=== PATIENT | female | born 1990 | race Two or more races ===

== ENCOUNTER 2024-08-29 00:03 | Inpatient (IN) | payer MEDICAID, SELFPAY ==
[2024-08-29] VITALS (200 sets, daily range): BP systolic 87–163; BP diastolic 53–99; PULSE 72–132; RESP 16–98; TEMP 36.4–37.8; O2SAT 75–100; BMI 33.0
--- NOTE | 2024-08-29 00:54 | XR_ITS ---
Examination: age Limited Technique: Limited transabdominal sonographic images pelvis Exam date and time: May 29, 2025 0242 hrs. Indications: Pelvic contractions beginning 2330 hrs. Last night active labor evaluation, unknown presentation of the right Findings: Viable intrauterine gestation cephalic presentation spine maternal left Estimated weight 3207 g Cardiac motion 155 BPM Estimated gestational age 37 weeks 4 days Impression: Viable intrauterine gestation cephalic presentation
[2024-08-29] MEDS: RINGERS LACTATED 1000 ML 1,000 ML 125 ML IV ×3 (01:10→06:50)
[2024-08-29] MEDS: ACETAMINOPHEN IVPB 1,000 MG/100 ML VIAL 250 MG IV ×2 (01:20→08:07)
[2024-08-29] MEDS: Ampicillin Inj 2,000 MG in SODIUM CHLORIDE 0.9% (P) 100 ML 100 MG IV ×3 (01:38→14:40)
[2024-08-29 02:12] LABS: Basophils % (Auto) 0 % (0-2.5); Eosinophils % (Auto) 0 % (0-10); Hematocrit 36.8 % (36.0-46.0); Hemoglobin 12.3 g/dL (12.0-16.0); Immature Granulocytes % (Auto) 1 % (0-0); Immature Granulocytes Auto 0.07 Thou/mm3 (0.00-0.00); Lymphocytes # (Auto) 0.6 Thou/mm3 (1.0-4.8); Lymphocytes % (Auto) 7 % (10-50); Mean Corpuscular HGB Conc 33.4 g/dl (31.0-37.0); Mean Corpuscular Hemoglobin 27.6 pg (25.0-35.0); Mean Corpuscular Volume 83 fL (80-100); Monocytes # (Auto) 0.8 Thou/mm3 (0.0-0.8); Monocytes % (Auto) 9 % (0-12); Neutrophils # (Auto) 7.5 Thou/mm3 (1.8-7.7); Neutrophils % (Auto) 83 % (37-80); Nucleated Red Blood Cell % 0 /100 WBC (0); Platelet Count 165 Thou/mm3 (140-440); RDW Standard Deviation 41.6 fL (36.4-46.3); Red Blood Count 4.45 Miln/mm3 (4.00-5.20)
[2024-08-29 02:35] LABS: COVID-19 Antigen (In-House) Negative (Negative)
[2024-08-29] MEDS: GENTAMICIN IV (03:22)
[2024-08-29] MEDS: SODIUM CHLORIDE IV (03:22)
[2024-08-29 04:06] LABS: Syphilis Nonreactive (Nonreactive)
--- NOTE | 2024-08-29 04:15 | PRELIM_ITS ---
Obstetric ultrasound with Doppler. August 29, 2024 0242 hours Clinical history: Determine presentation and EFW Comparison: None. Findings: There is a gravid uterus with a live fetus in cephalic with spine to the maternal left presentation of mean gestational age 39 weeks and 6 days (by biometric). Estimated weight is 3207 grams. Impression: Gravid uterus with a single live fetus in cephalic with the spine to the maternal left presentation of mean gestational age 39 weeks 6 days. Estimated weight is 3207 grams. Report Electronically Signed By: Ermias Joseph 08/29/2024 4:15:08 AM [EST]
[2024-08-29 04:45] LABS: Influenza A Ag Negative; Influenza B Ag Positive
[2024-08-29] MEDS: CLINDAMYCIN 900MG IVPB 900 MG in PRE-MIXED 1 BAG 50 MG IV ×2 (04:57→12:55)
[2024-08-29] MEDS: CITRIC ACID/SODIUM CITR 15 ML UDC (BICITRA) 30 ML (05:14)
[2024-08-29] MEDS: METOCLOPRAMIDE INJ 5 MG/ML VIAL 2 ML 10 MG (05:14)
--- NOTE | 2024-08-29 05:22 | PD.LDHP ---
Documentation for date of: 08/29/24 OB Labor/Induct. HPI History of Present Illness History of present illness: 34-year-old 2 para 1-0-0-1 at 38 weeks 0 days admitted with grossly ruptured membranes for augmentation of labor. On arrival at 12:40 AM baby was tachycardic in 160-170 baseline. Mom had an elevated temperature on arrival. Antibiotics were started patient was given a bolus. This is my first encounter with the patient patient had all her care with PRUDENCIO Martin. Orders were given for routine admission. At 4:10 AM I was called by the nurse that the baby although has recovered from tachycardia and the baseline is 150. However most of the heart tracing has been minimal variability. Resuscitation has been tried as in position changes and bolus of fluid. Pitocin was not started because of minimal variability. RN was instructed to insert internal monitoring so that the call was of minimal variability can be ascertained for example if the patient is tachysystolic then there will be a reason for her minimal variability History of Present Adequate Care: Yes Labs Labs: Negative: Hepatitis B, HIV, Chlamydia and Gonorrhea and Unknown: Group Beta Strep Meds Home Medications and Allergies Allergies Allergy/AdvReac Type Severity Reaction Status Date / Time No Known Allergies Allergy Verified 03/28/24 17:05 OB Exam Physical Exam Vital signs: Temp Pulse Resp BP Pulse Ox 98.5 F 111 H 20 139/89 H 92 L 08/29/24 03:37 08/29/24 05:08 08/29/24 01:37 08/29/24 05:08 08/29/24 05:20 Constitutional Constitutional: no acute distress Routine HEENT Exam Head: Present normocephalic and atraumatic Eye: Present EOMI and PERRL ENT: Present mucous membranes moist Routine Neck Exam Neck: Present supple and trachea midline Routine Cardiovascular Exam Cardiovascular: Present RRR Routine Abdominal Exam Abdominal: Present soft and normoactive bowel sounds Detailed Labor and Delivery Exam Dilation (cm): 3.5 on admission has changed to 4 cm now Comments: On review of the tracing, minimal variability was noted most of the strip however accelerations are present. Occasional late decelerations seen. And spite of all the resuscitation and with presence of internal monitors minimal variability was confirmed Routine Extremities Exam Extremities: Present full ROM Routine Skin Exam Skin: Present intact, dry and warm Routine Neurological Exam Neurological: Present alert, oriented X3 and CN II-XII intact Routine Psychiatric Exam Psychiatric: Present normal affect and normal thought process OB Results Labs 08/29/24 01:10 Labs: Short CBC 08/29/24 Range/Units 01:10 WBC 9.0 (3.6-11.0) Thou/mm3 Hgb 12.3 (12.0-16.0) g/dL Hct 36.8 (36.0-46.0) % Plt Count 165 (140-440) Thou/mm3 Impressions Impression: 34-year-old 2 para 1-0-0-1 at 38 weeks and 0 days was admitted after SROM Started on antibiotics for maternal fever Minimal variability, category 2 heart tone noted and spite of resuscitation GBS negative OB Assessment & Plan Additional Plan Additional Plan Comment: Primary low-transverse offered to the mom Expectant management including continuing labor, chances of chorioamnionitis was discussed with the patient. Patient desires a primary low-transverse Azithromycin 1 g to be given DVT prophylaxis Cefazolin as per routine preop prophylaxis
[2024-08-29] MEDS: CITRIC ACID/SODIUM CITR 15 ML UDC (BICITRA) 30 ML PO ×2 (05:30→17:19)
[2024-08-29] MEDS: ceFAZolin/D5W 2 GM IV 2 GM/100 ML BAG IV ×2 (05:30→17:19)
--- NOTE | 2024-08-29 05:38 | PD.LDPN ---
Documentation for date of: 08/29/24 OB Labor Progress Note Pelvic Exam Dilation (cm): 5CM Status status: Category l Comments: Acceleration on scalp stimulation , variability is moderate Assessment and Plan Comments: Patient is feeling a lot of pressure and was rechecked to be changed to 5 cm and 100 percent effaced Variability has returned to moderate We will hold off on the for now
[2024-08-29 07:33] LABS: Alanine Aminotransferase 16 U/L (10-49); Albumin, Serum 3.8 gm/dL (3.5-5.0); Albumin/Globulin Ratio 1.4 (1.2-2.2); Alkaline Phosphatase 162 U/L (46-116); Anion Gap 12 (7-16); Aspartate Amino Transferase 25 U/L (0-34); BUN/Creatinine Ratio 10 Ratio (12-20); Bilirubin,Total 0.5 mg/dL (0.3-1.2); Blood Urea Nitrogen 7 mg/dL (9-23); Calcium 8.8 mg/dL (8.3-10.6); Carbon Dioxide 19.9 mMol/L (20.0-31.0); Chloride 106 mMol/L (98-107); Creatinine (Component) 0.7 mg/dL (0.6-1.3); Estimated Creatinine Clearance 111.1 mL/min (>60); Globulin 2.7 gm/dL (2.3-3.5); Glucose 96 mg/dL (74-106); LDH (Lactate Dehydrogenase) 228 U/L (120-246); Osmolality,Calculated 273 (275-295); Potassium 3.6 mMol/L (3.4-5.1); Sodium 138 mMol/L (136-145); Total Protein 6.5 gm/dL (5.7-8.2); eGFR > 60 See Note
--- NOTE | 2024-08-29 09:59 | PD.LDPN ---
Documentation for date of: 08/29/24 OB Labor Progress Note Pain Control Pain control: epidural Comments: Still having pain and pressure with epidural in place Pelvic Exam Dilation (cm): 8 Effacement (%): 80 station: -2 Amniotic membrane status: Ruptured Contractions Monitor mode: Internal Contraction frequency: 2-3 min Contraction duration: 30 Intrauterine tone measurement: 200 Status status: Category l Assessment and Plan Assessment: active labor Plan OB labor note: continuous present management Comments: Pt with active influenza. Tylenol for fevers as needed
[2024-08-29] MEDS: RINGERS LACTATED 500 ML 500 ML 999 ML IV (12:23)
[2024-08-29 14:29] LABS: Vancomycin,Random < 3.0 mcg/mL
[2024-08-29] MEDS: FAMOTIDINE INJ 10 MG/ML VIAL 2 ML 20 MG IV (17:19)
--- NOTE | 2024-08-29 17:20 | PD.LDPN ---
Documentation for date of: 08/29/24 OB Labor Progress Note Pain Control Pain control: epidural Comments: Pt has a lot of pelvic pressure Pelvic Exam Dilation (cm): 9.5 Effacement (%): 90 station: -1 Amniotic membrane status: Ruptured Contractions Monitor mode: Internal Contraction frequency: 2-3 min Intrauterine tone measurement: 200 Status status: Category l Assessment and Plan Plan OB labor note: Comments: Patient has made no significant cervical change in greater than 5 hours plan for primary section at this time. Patient was consented all questions answered all consent signed.
--- NOTE | 2024-08-29 18:37 | PD.LDDELS ---
Data (Lay) Data Hx Section: No (Arrest of dilation at 9 cm) Reason for Primary Section: Arrest of Dilation : 2 Term: 1 : 0 Livin : 0 Delivery Data (Lay) Labor Data Stimulated/Augmented: Yes Induction: Yes Method: AROM Rupture Type: SROM Amniotic Fluid: Clear
[2024-08-29] MEDS: KETOROLAC INJ 30 MG/ML VIAL IVP (19:37)
--- NOTE | 2024-08-29 20:08 | PD.GYNPROC ---
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 Patient had influenza and a category 2 tracing and was admitted overnight and induced she was she progressed to 8 to 9 cm and did not make any further progress for greater than 6 hours and a primary was called Pre-Op diagnosis: Arrest of dilation Post-Op diagnosis: Name Anesthesia type: Spinal Procedure description: After obtaining informed consent, the patient was brought back to the operating room and her epidural was bolused to provide excellent anesthesia. She was then prepped and draped in the dorsal supine position with a leftward tilt in a normal sterile fashion. A Rivera catheter had been inserted during the patient's labor. A Pfannenstiel skin incision was made this a scalpel and carried down to the underlying fascia the fascia was incised the midline the fascial incision extended laterally using Gaytan scissors. The superior aspect the fascia was grasped Jignesh clamps underlying rectus muscles dissected off using blunt and sharp dissection.This was repeated in the infra aspect the incision. The rectus muscles were the midline the peritoneum was picked up entered sharply Metzenbaum scissors was extended superiorly and inferiorly with good visualization of the bladder. The bladder blade was inserted and the uterus was incised in low transverse fashion above the bladder reflection using a scalpel. The uterine incision was extended laterally with blunt dissection with surgeons fingers. The bag water was ruptured and copious clear fluid was noted. The bladder blade was removed the infant was delivered atraumatically. The cord was clamped and cut and the was handed off to the waiting pediatric staff. Cord blood was collected.Cord gases were saved. The placenta was then manually removed and the uterus was exteriorized and cleared of all clots and debris. The uterine incision was repaired with 0 Vicryl in a running locked fashion and excellent hemostasis was noted. The uterus was returned to the patient's abdominal cavity and copious irrigation was carried out with warm normal saline. The uterine incision was reexamined several times noted to be hemostatic. After ensuring the rectus muscles were hemostatic these were reapproximated at the midline using running suture of 0 Vicryl. The fascia was closed with 0 Vicryl in a running fashion. The subcutaneous tissues were irrigated found to be hemostatic. These were reapproximated using a running suture of 3-0 plain. The skin was closed with a subcuticular suture of 4-0 Monocryl. The patient tolerated the procedure well. Sponge, lap and needle counts were correct x 2 . The patient went to the recovery room awake and in stable condition. Of note, note the baby was in recovery with mom and dad in stable condition Specimen: none Implants: none Estimated blood loss (ml): 500 Findings: Liveborn male in the direct OP presentation with no nuchal cord or meconium .Apgars were 8 and 9. Weight was 8 pounds 4 ounces. The placenta was complete spontaneous and grossly normal. The uterus, bilateral fallopian tubes, and ovaries were grossly normal to inspection. Complications: none Surgical staff Operation Date: 08/29/24 17:15 Case Staff SHIP RUNNER: Isreal Holbrook RNwind development director: Niki Green Diagnosis Problem List Completed Was Problem List Reviewed/Reconciled?: Yes
--- NOTE | 2024-08-29 21:00 | PC.NURSE ---
@2100, Dr. Rasmussen consulted on continuing antibiotic therapy. Per Dr. Rasmussen, discontinue ampicillin and clindamycin
[2024-08-29] MEDS: OXYTOCIN in NS 20 units 20 UNIT/1,000 ML BAG 125 UNIT IV (21:11)
[2024-08-30 00:45] VITALS: BP 119/79; PULSE 92; RESP 18; TEMP 36.6; O2SAT 98
[2024-08-30 03:45] VITALS: BP 117/81; PULSE 86; RESP 20; TEMP 36.6; O2SAT 99
[2024-08-30] MEDS: RINGERS LACTATED 1000 ML 1,000 ML 125 ML IV (05:22)
[2024-08-30 05:42] LABS: Basophils % (Auto) 0 % (0-2.5); Eosinophils % (Auto) 0 % (0-10); Hematocrit 31.5 % (36.0-46.0); Hemoglobin 10.4 g/dL (12.0-16.0); Immature Granulocytes % (Auto) 1 % (0-0); Immature Granulocytes Auto 0.07 Thou/mm3 (0.00-0.00); Lymphocytes % (Auto) 8 % (10-50); Mean Corpuscular Hemoglobin 27.9 pg (25.0-35.0); Mean Corpuscular Volume 85 fL (80-100); Monocytes # (Auto) 0.5 Thou/mm3 (0.0-0.8); Monocytes % (Auto) 4 % (0-12); Neutrophils # (Auto) 10.4 Thou/mm3 (1.8-7.7); Neutrophils % (Auto) 87 % (37-80); Nucleated Red Blood Cell % 0 /100 WBC (0); Platelet Count 152 Thou/mm3 (140-440); RDW Standard Deviation 43.6 fL (36.4-46.3); Red Blood Count 3.73 Miln/mm3 (4.00-5.20); White Blood Count 11.9 Thou/mm3 (3.6-11.0)
[2024-08-30 08:10] VITALS: BP 114/76; PULSE 92; RESP 17; TEMP 36.8; O2SAT 98
[2024-08-30] MEDS: DOCUSATE SOD 100 MG CAPSULE PO (08:40)
[2024-08-30] MEDS: KETOROLAC INJ 30 MG/ML VIAL IVP (10:51)
--- NOTE | 2024-08-30 11:14 | ESPR_ITS ---
Subjective Subjective Interval history: The Patient is a 34-year-old -0-0-2 postop day #1 status post primary C- section the evening of 08/29/2024. The Patient is Sinhala-speaking only and a nurse translates the visit for me. She still has a cough and she has had influenza for 3 days. Her pain is controlled, she is tolerating a general diet and breast-feeding. She denies heavy vaginal bleeding. Exam Vital Signs Temp Pulse Resp BP Pulse Ox O2 Del Method 98.2 F 92 17 114/76 98 Room Air 08/30/24 08:10 08/30/24 08:10 08/30/24 08:10 08/30/24 08:10 08/30/24 08:10 08/30/24 08:10 Constitutional Constitutional: no acute distress and cooperative Comments: Is sitting up in bed. Alert and oriented x 3 in no apparent distress Rivera catheter is in place draining clear urine. Routine Abdominal Exam Abdominal: Present soft and wound Comments: Incision dressed and dry. Fundus firm and nontender. Routine Extremities Exam Comments: No cyanosis clubbing or edema. Objective Labs 08/30/24 04:45 08/29/24 02:55 Labs: Laboratory Results - last 24 hr 08/29/24 08/30/24 13:55 04:45 WBC 11.9 H RBC 3.73 L Hgb 10.4 L Hct 31.5 L MCV 85 MCH 27.9 MCHC 33.0 RDW Std Deviation 43.6 Plt Count 152 Neut % (Auto) 87 H Lymph % (Auto) 8 L Whitfield % (Auto) 4 Eos % (Auto) 0 Baso % (Auto) 0 Neut # (Auto) 10.4 H Lymph # (Auto) 1.0 Whitfield # (Auto) 0.5 Eos # (Auto) 0.0 Baso # (Auto) 0.0 Immature Gran # (Auto) 0.07 H Absolute Nucleated RBC 0.00 Immature Gran % 1 H Nucleated RBC % 0 Random Vancomycin < 3.0 Impressions Impression: Postop day #1 status post primary progressing well Assessment & Plan Assessment Comment Assessment comment: Postop day #1 status post primary low-transverse section doing well. Recovering from influenza. Plan Comment Plan Comment: Add Tamiflu. Continue routine care. Anticipate discharge home tomorrow. Time Spent With Patient Time: Total time spent is greater than 50% in coordination of care (as documented) at patient's floor/unit and/or counseling patient: Time with patient: less than 15 minutes
[2024-08-30 11:43] VITALS: BP 110/70; PULSE 89; RESP 18; TEMP 36.7; O2SAT 96
[2024-08-30] MEDS: OSELTAMIVIR 75 MG CAPSULE PO ×2 (11:56→20:31)
[2024-08-30 15:35] VITALS: BP 108/76; PULSE 86; RESP 18; TEMP 36.7; O2SAT 100
--- NOTE | 2024-08-30 17:50 | PC.NURSE ---
08/29/2024 1845 500 ml LR bolus begun for low BP Humphrey Hancock CRNA notified
[2024-08-30 20:00] VITALS: BP 120/75; PULSE 96; RESP 20; TEMP 36.6; O2SAT 98
[2024-08-30] MEDS: HYDROcodone/APAP 5/325 TABLET 2 TAB PO (20:54)
[2024-08-31 04:00] VITALS: BP 125/85; PULSE 86; RESP 15; TEMP 36.5; O2SAT 97
[2024-08-31] MEDS: IBUPROFEN TAB 400 MG TABLET 800 MG PO (04:53)
[2024-08-31 08:00] VITALS: BP 122/84; PULSE 73; RESP 16; TEMP 36.4; O2SAT 97
[2024-08-31] MEDS: DOCUSATE SOD 100 MG CAPSULE PO (08:47)
[2024-08-31] MEDS: OSELTAMIVIR 75 MG CAPSULE PO (08:47)
[2024-08-31 11:52] VITALS: TEMP 36.6
--- NOTE | 2024-08-31 12:47 | ESDS_ITS ---
DS: Providers Provider Date of admission: 08/29/24 01:06 Primary care physician: Physician No Primary/Family Admitting Provider: Asiya Martin CNM Attending Provider on Admission: Ling Rasmussen MD Consults: 08/29/24 18:39 Referral Routine Comment: Attending Provider on DC: Ling Rasmussen MD Discharging Provider: Ling Rasmussen MD Anticipated date of discharge: 08/31/24 DS: Diagnosis Discharge Diagnosis (1) Influenza: Status: Acute Assessment & Plan: Tamiflu started during hospital stay. Will continue at home. Patient is doing better with no fevers and minimal cough. (2) Term delivered: Status: Acute (3) delivery delivered: Status: Acute Problem List Completed Was Problem List Reviewed/Reconciled?: Yes Summary/Hosp Course Brief History: 34-year-old 2 para 1-0-0-1 at 38 weeks 0 days admitted with grossly ruptured membranes for augmentation of labor. On arrival at 12:40 AM baby was tachycardic in 160-170 baseline. Mom had an elevated temperature on arrival. Antibiotics were started patient was given a bolus. This is my first encounter with the patient patient had all her care with PRUDENCIO Martin. Orders were given for routine admission. At 4:10 AM I was called by the nurse that the baby although has recovered from tachycardia and the baseline is 150. However most of the heart tracing has been minimal variability. Resuscitation has been tried as in position changes and bolus of fluid. Pitocin was not started because of minimal variability. RN was instructed to insert internal monitoring so that the call was of minimal variability can be ascertained for example if the patient is tachysystolic then there will be a reason for her minimal variability Peripartum Data Delivery Method: Low Transverse Procedures: Procedures Operation Date: 08/29/24 05:30 <No data on this case meets the specified criteria> Operation Date: 08/29/24 17:15 Actual Procedure Side Surgeon p in OB Maribel Rasmussen MD complications: none Status at Discharge Functional status at discharge: independent ambulation Overall status at discharge: patient is progressing back to baseline Time Spent with Patient Time attestation: Total time spent providing and/or coordinating discharge services: Time spent: Less than 30 minutes Specific discharge activities: No heavy lifting x 6 weeks no intercourse or tampons douching x 6 weeks no bath tub x 6 weeks return to clinic in 1 week to check incision. Call with fevers, heavy vaginal bleeding, erythema around incision or severe depression. Exam Vital Signs Temp Pulse Resp BP Pulse Ox O2 Del Method 97.9 F 73 16 122/84 97 Room Air 08/31/24 11:52 08/31/24 08:00 08/31/24 08:00 08/31/24 08:00 08/31/24 08:00 08/31/24 08:00 Constitutional Constitutional: no acute distress and cooperative Comments: Patient is alert and oriented x 3 in no apparent distress. She is breast-fee ding well. She is eager to go home. Routine Abdominal Exam Abdominal: Present soft Comments: Incision clean dry and intact. Fundus firm. Routine Extremities Exam Comments: No significant pedal edema. No cyanosis clubbing or edema. Discharge Plan Plan Patient Disposition: HOME (Self Care) Disposition Comment: Stable Prescriptions/Referrals Referrals: No Primary/Family,Physician [Primary Care Provider] - Patient/Caregiver Discharge Instructions Discharge Activity: activity as tolerated Other Discharge Activity Instructions:: No heavy lifting, no tampons intercourse or douching x 6 weeks. No bath x 6 weeks. Shower daily and wash incision with soap and water. Call with heavy vaginal bleeding fevers erythema around incision or severe depression. Return to clinic in 1 week in 6 weeks. Education Materials: Breast Care After , After a , C Section Dc, Feel Healthy After, The Flu (Influenza), Preventing Surgical Site Infections, ED Influenza (Adult) Print Language: Italian Activity Restrictions/Additional Instructions: seguimiento en rell semana Stand Alone Forms: Martha Award Info., Patient Portal Info Letter Discharge Order Discharge Orders: Discharge (Routine); Ordered 08/31/24 Ordered By: Ling Rasmussen Planned Discharge Date 08/31/24
--- NOTE | 2024-08-31 16:08 | PC.NURSE ---
called dr Rasmussen about discharge medication. Ok to discharge patient and will call pharmacy for medication, rosa isela jenkins [phone]
== END 2024-08-31 17:45 | disposition home or self-care (01) | DRG 560 ==
LOC: S4SX 17:18 → S4NX 17:32
PROVIDERS: Student in an Organized Health Care Education/Training Program; Admitting Provider Advanced Practice Midwife; Visit Provider Obstetrics & Gynecology
PROC: (CPT 59514; principal; 2024-08-29 05:30)
DX: O62.0 Primary inadequate contractions (principal); O76 Abnormality in fetal heart rate and rhythm complicating labor and delivery; Z37.0 Single live birth; Z3A.38 38 weeks gestation of pregnancy; J11.1 Influenza due to unidentified influenza virus with other respiratory manifestations; O99.52 Diseases of the respiratory system complicating childbirth; O75.2 Pyrexia during labor, not elsewhere classified
CPT/HCPCS: 36415; 59025; 76815; 80053; 80202; 83615; 85025; 86780; 86850; 86900; 86901; 87502; 87811; J0131; J0290; J0689; J1580; J1885; J2274; J2371; J2590; J2765; J2795; J3010; J3490; J7120; S0077; A9270; J0736; J2270